=== PATIENT | female | born 1980 | race Caucasian/White ===

== ENCOUNTER 2016-12-14 08:49 | Emergency (ER) | payer OTHER ==
--- NOTE | ~2016-12-14 | CR282 ---
[facility] A Service of [facility] RADIOLOGY TEXT RESULTS PATIENT: ALLY RIOJAS LOCATION: [facility] : [id number] UNIT #: [id number] AGE: [address]: DAVID MASTERS SEX: F ORDER DR: [id number] [facility] [address] [place], [place] [address] [id number] E MR#: [id number] Acc #: [id number] NAME: ALLY RIOJAS : 1980 SEX: F STUDY DATE/TIME: 12/14/2016 8:51 UNIT: [facility] ROOM: STUDY DESCRIPTION: CR Wrist Min 3 View Rt Attending Physician: David Masters Aprn Ordering Physician: David Masters Aprn Primary Care Physician: Davian Pillai M.D. MEDICAL IMAGING REPORT This report is preliminary unless electronic signature is present EXAM Right wrist series INDICATIONS Right wrist pain for the past 4 months. TECHNIQUE 3 views of the right wrist. FINDINGS No fracture, dislocation or malalignment. IMPRESSION Negative. Dictated by... Domenico Blackman M.D. THIS IS AN ELECTRONICALLY VERIFIED REPORT Domenico Blackman M.D. at 12/15/2016 9:42 AM EED/pcl TD: 12/14/2016 09:32 JOB #: [id number] MEDICAL IMAGING REPORT Page 1 of 1 COPY
[~2016-12-14 08:49] MED LIST: ACETAMINOPHEN PO; ACETAMINOPHEN325 MG PO; ALBUTEROL17 GM INH; ALBUTEROL20 ml; ALPRAZOLAM PO; ANTIVERT PO; AUGMENTIN PO; CEFTRIAXONE2 GM IM/IV; CEFTRIAXONE2 GM IV; CIPRO PO; COMBIVENT U/D3 M2 INH; FIORICET W/CODE1 CAP PO; FLAGYL PO; FLEXERIL PO; K-DUR20 ME1 PO; KEFZOL2 GM INJ; KETOPROFEN PO; LEVAQUIN750 MG PO; LORTAB 10-5001 EACH PO; MEDROL4 MG/DOSE- PO; NAPROXEN PO; NICOTINE TRANSD14 MG TD; NO MEDICATIONS; ORUDIS75 M1 PO; PHENERGAN25 MG; PHENERGAN25 MG PO; PREDNISONE PO; PYRIDIUM PO; RITE-AID PHARMACY; ROBITUSSIN A-C-S1 ML PO; SEROQUEL PO; SODIUM CHLORIDE1 GM PO; TRILEPTAL PO; TYLENOL325 M1 PO; ULTRAM ER100 MG PO; VOLTAREN75 MG PO; ZITHROMAX PO
== END 2016-12-14 09:35 | disposition home or self-care (01) ==
LOC: CED 08:49
DX: M77.9 Enthesopathy, unspecified (principal); F17.210 Nicotine dependence, cigarettes, uncomplicated; Z98.51 Tubal ligation status
CPT/HCPCS: 29125; 73110; 99283